=== PATIENT | male | born 1960 | race Caucasian/White ===

== ENCOUNTER → 2024-09-23 10:05 | Outpatient (REF) | payer BC, SELFPAY ==
[2024-09-23 13:09] LABS: % Basophils 1.2 % (0-2); % Eosinophils 4.6 % (0-6); % Immature Granulocytes 0.4 % (0-0.5); % Lymphocytes 24.3 % (20.5-51.1); % Monocytes 9.4 % (1.7-9.3); % Neutrophils 60.1 % (42.2-75.2); Absolute Basophils 0.1 10^3/uL (0-0.2); Absolute Eosinophils 0.2 10^3/uL (0-0.7); Absolute Lymphocytes 1.2 10^3/uL (1.2-3.4); Absolute Monocytes 0.5 10^3/uL (0.1-0.6); Hematocrit 42.9 % (39.0-52.0); Hemoglobin 15.3 g/dL (13.0-18.0); Mean Corp Hgb Conc. 35.7 g/dL (33.0-37.0); Mean Corpuscular Hgb 32.2 pg (27.0-31.0); Mean Corpuscular Volume 90.3 fL (80.0-94.0); Mean Platelet Volume 8.6 fL (7.4-10.4); Nucleated Red Blood Cells % 0 % (-); Platelet Count 197 10^3/uL (130-400); Red Blood Cell Count 4.75 10^6/uL (4.70-6.10); Red Cell Dist. Width 11.8 % (11.5-14.5)
[2024-09-23 13:34] LABS: Blood Urea Nitrogen 15 mg/dl (9-20); Calcium 9.6 mg/dl (8.4-10.2); Carbon Dioxide 27 mmol/L (22-30); Chloride 102 mmol/L (98-107); Glucose 96 mg/dl (70-99); Potassium 4.8 mmol/L (3.5-5.1); Sodium 136 mmol/L (135-145); eGFR > 60.00
== END ==
LOC: HWRAD 10:05
PROVIDERS: ATTENDING PHYSICIAN Specialist; FAMILY PHYSICIAN Internal Medicine
DX: M19.012 Primary osteoarthritis, left shoulder (principal); R35.1 Nocturia
CPT/HCPCS: 36415; 73200; 80048; 84153; 84154; 85025

== ENCOUNTER → 2025-01-20 09:57 | Outpatient (REF) | payer BC, SELFPAY | LOC: WDC 09:57 | PROVIDERS: ATTENDING PHYSICIAN Internal Medicine | DX: R22.2 Localized swelling, mass and lump, trunk (principal); N63.42 Unspecified lump in left breast, subareolar | CPT/HCPCS: 76642; 77062; 77066 ==

== ENCOUNTER → 2025-02-27 09:53 | Outpatient (REF) | payer BC, SELFPAY | LOC: RAD 09:53 | PROVIDERS: ATTENDING PHYSICIAN Internal Medicine | DX: M79.675 Pain in left toe(s) (principal) | CPT/HCPCS: 73660 ==

== ENCOUNTER → 2025-04-11 07:54 | Outpatient (REF) | payer BC, SELFPAY ==
--- NOTE | 2025-04-11 15:11 | OID.BR.INTR ---
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
- -
Date of Contact: 04/11/25
Met with patient. Will follow up as needed per protocol.
== END ==
LOC: WDC 07:54
PROVIDERS: ATTENDING PHYSICIAN Surgery; FAMILY PHYSICIAN Internal Medicine
DX: R92.8 Other abnormal and inconclusive findings on diagnostic imaging of breast (principal); N63.20 Unspecified lump in the left breast, unspecified quadrant; N63.0 Unspecified lump in unspecified breast
CPT/HCPCS: 19083; 88305